=== PATIENT | male | born 1965 | race Caucasian/White ===

== ENCOUNTER 2017-05-04 13:24 | Emergency (ER) | payer OTHER ==
[~2017-05-04] VITALS: Ht 170.2 cm; Wt 100.0 kg
[2017-05-04 13:26] VITALS: BP 146/85; PULSE 65; RESP 15; TEMP 98.1; O2SAT 99
--- NOTE | 2017-05-04 13:32 | PD ---
Physical Exam Time Seen by Provider: 13:29 Narrative 52yo M c/o R testicle pain since 04/11/2017. Thought had [facility]nia [facility] and is concerned of appendicitis or hydrocele. Denies fever, vomiting. +urinary frequency. Says testicle feels swollen, but was told by [facility] its not swollen. Patient seen in triage. VS reviewed. Awaiting bed placement. MDM Supervised Visit with BLAYNE: Madhavi Reyna May 04, 2017 13:32
--- NOTE | 2017-05-04 13:43 | PD ---
HPI . testicle pain, right lower quadrant pain x 1 day Chief Complaint: Complaint Time Seen by Provider: 13:43 Travel History International Travel<30 days: No Contact w/Intl Traveler<30days: No Traveled to known affect area: No History of Present Illness HPI 52-year-old male who was [facility] due to right lower quadrant pain and testicular pain and told that he possibly had a hydrocele versus appendicitis here with complaints of right lower quadrant pain, right sided testicular pain, upper quadrant and left lower pain for 1 day. History significant for carpal tunnel syndrome, osteoarthritis, male hypogonadism, major depressive disorder, cervical radiculopathy, BPH, mentation status of the lower limb on the left, gout, obesity, hyperlipidemia, chronic low back pain, posttraumatic stress disorder, thrombocytopenia and normocytic anemia. Patient tells me that initially had some nausea, however now he is better. He reports abdominal pain as 7/10 primarily located in the right lower quadrant and right testicles. He has not had any vomiting. He does report having constipation for the past few days, however this morning he had a bowel movement for the first time in about 7 days. [facility], [facility] Social History Alcohol Use: No Tobacco Use: No Substance Use: No Allergies-Medications (Allergen,Severity, Reaction): Coded Allergies: Imitrex (Verified Allergy, Unknown, 05/04/17) Review of Systems General / Constitutional: No: Fever Eyes: No: Visual changes HENT: No: Headaches Cardiovascular: No: Chest Pain or Discomfort Respiratory: No: Shortness of Breath Gastrointestinal: Positive: Abdominal Pain, Other (testicular pain ) Genitourinary: Positive: Other (right sided testicular pain ), No: Dysuria Musculoskeletal: No: Pain Skin: No Rash Neurologic: No: Weakness Psychiatric: No: Depression Endocrine: No: Polydipsia Hematologic/Lymphatic: No: Easy Bruising Physical Exam Narrative GENERAL: AAO x 3, no acute distress, Well-nourished, well-developed patient. SKIN: Warm and dry. No visible rashes or bruising. HEAD: Normocephalic and atraumatic. EYES: No scleral icterus. No injection or drainage. EOM intact, PERRLA ENT: No nasal drainage noted. Mucous membranes pink. Airway patent. NECK: Supple, trachea midline. No JVD. CARDIOVASCULAR: Regular rate and rhythm without murmurs, gallops, or rubs. RESPIRATORY: Breath sounds equal bilaterally. No accessory muscle use. No rhonchi or rales. GASTROINTESTINAL: Abdomen soft, tenderness to deep palpation in the left upper quadrant, left lower quadrant and mainly in the right lower quadrant. Positive McBurney's point tenderness. There is also tenderness in the suprapubic area GENITAL: Maria Luz RN present, + right sided inguinal hernia that is reducible EXTREMITIES: No cyanosis or edema. L BKA with prosthesis in place BACK: No obvious deformity. + right sided CVA tenderness. 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 Data Data Last Documented VS Vital Signs Date Time Temp Pulse Resp B/P Pulse Ox O2 Delivery O2 Flow Rate FiO2 05/04/17 13:26 98.1 65 15 146/85 99 Orders Complete Blood Count With Diff (05/04/17 14:09) Comprehensive Metabolic Panel (05/04/17 14:09) Lipase (05/04/17 14:09) Prothrombin Time / Inr (Pt) (05/04/17 14:09) Act Partial Throm Time (Ptt) (05/04/17 14:09) Urinalysis - C+S If Indicated (05/04/17 14:09) Ct Abd/Pel W Iv Contrast(Rout) (05/04/17 14:09) Iv Access Insert/Monitor (05/04/17 14:09) Ecg Monitoring (05/04/17 14:09) Oximetry (05/04/17 14:09) Sodium Chloride 0.9% Flush (Ns Flush) (05/04/17 14:15) Us Testicles W Doppler (05/04/17 14:09) Iohexol 350 Inj (Omnipaque 350 Inj) (05/04/17 15:34) Labs Laboratory Tests Test 05/04/17 14:25 White Blood Count 7.0 TH/MM3 Red Blood Count 4.73 MIL/MM3 Hemoglobin 14.7 GM/DL Hematocrit 42.2 % Mean Corpuscular Volume 89.4 FL Mean Corpuscular Hemoglobin 31.0 PG Mean Corpuscular Hemoglobin 34.7 % Concent Red Cell Distribution Width 13.1 % Platelet Count 192 TH/MM3 Mean Platelet Volume 9.0 FL Neutrophils (%) (Auto) 59.3 % Lymphocytes (%) (Auto) 28.8 % Monocytes (%) (Auto) 8.1 % Eosinophils (%) (Auto) 2.7 % Basophils (%) (Auto) 1.1 % Neutrophils # (Auto) 4.1 TH/MM3 Lymphocytes # (Auto) 2.0 TH/MM3 Monocytes # (Auto) 0.6 TH/MM3 Eosinophils # (Auto) 0.2 TH/MM3 Basophils # (Auto) 0.1 TH/MM3 CBC Comment DIFF FINAL Differential Comment Prothrombin Time 11.2 SEC Prothromb Time International 1.0 RATIO Ratio Activated Partial 28.4 SEC Thromboplast Time Urine Color YELLOW Urine Turbidity CLEAR Urine pH 5.5 Urine Specific [place] 1.016 Urine Protein NEG mg/dL Urine Glucose (UA) NEG mg/dL Urine Ketones NEG mg/dL Urine Occult Blood SMALL Urine Nitrite NEG Urine Bilirubin NEG Urine Urobilinogen LESS THAN 2.0 MG/DL Urine Leukocyte Esterase NEG Urine RBC 2 /hpf Urine WBC LESS THAN 1 /hpf Microscopic Urinalysis Comment CULT NOT INDICATED Sodium Level 137 MEQ/L Potassium Level 3.8 MEQ/L Chloride Level 105 MEQ/L Carbon Dioxide Level 26.1 MEQ/L Anion Gap 6 MEQ/L Blood Urea Nitrogen 14 MG/DL Creatinine 0.82 MG/DL Estimat Glomerular Filtration 98 ML/MIN Rate Random Glucose 98 MG/DL Calcium Level 8.9 MG/DL Total Bilirubin 0.6 MG/DL Aspartate Amino Transf 20 U/L (AST/SGOT) Alanine Aminotransferase 27 U/L (ALT/SGPT) Alkaline Phosphatase 69 U/L Total Protein 7.2 GM/DL Albumin 3.9 GM/DL Lipase 160 U/L [facility] Medical Decision Making Medical Screen Exam Complete: Yes Emergency Medical Condition: Yes Medical Record Reviewed: Yes Differential Diagnosis Right inguinal hernia, epididymitis, appendicitis, colitis, diverticulitis, orchitis Narrative Course 52-year-old male here with complaints of right upper quadrant and right testicular pain. He also has some left upper quadrant and left lower quadrant pain. IV access was obtained. Patient was placed on continuous cardiac and pulse oximetry monitoring. Labs, UA, CT have been ordered. Last Impressions Scrotum Ultrasound 05/04/17 [id number] Signed Impressions: Service Date/Time: Thursday, May 04, 2017 14:36 - CONCLUSION: Trace hydrocele bilaterally with symmetrical flow. Negative for mass or torsion. Alex Dahl MD FACR Laboratory Tests Test 05/04/17 14:25 White Blood Count 7.0 TH/MM3 Red Blood Count 4.73 MIL/MM3 Hemoglobin 14.7 GM/DL Hematocrit 42.2 % Mean Corpuscular Volume 89.4 FL Mean Corpuscular Hemoglobin 31.0 PG Mean Corpuscular Hemoglobin 34.7 % Concent Red Cell Distribution Width 13.1 % Platelet Count 192 TH/MM3 Mean Platelet Volume 9.0 FL Neutrophils (%) (Auto) 59.3 % Lymphocytes (%) (Auto) 28.8 % Monocytes (%) (Auto) 8.1 % Eosinophils (%) (Auto) 2.7 % Basophils (%) (Auto) 1.1 % Neutrophils # (Auto) 4.1 TH/MM3 Lymphocytes # (Auto) 2.0 TH/MM3 Monocytes # (Auto) 0.6 TH/MM3 Eosinophils # (Auto) 0.2 TH/MM3 Basophils # (Auto) 0.1 TH/MM3 CBC Comment DIFF FINAL Differential Comment Prothrombin Time 11.2 SEC Prothromb Time International 1.0 RATIO Ratio Activated Partial 28.4 SEC Thromboplast Time Urine Color YELLOW Urine Turbidity CLEAR Urine pH 5.5 Urine Specific [place] 1.016 Urine Protein NEG mg/dL Urine Glucose (UA) NEG mg/dL Urine Ketones NEG mg/dL Urine Occult Blood SMALL Urine Nitrite NEG Urine Bilirubin NEG Urine Urobilinogen LESS THAN 2.0 MG/DL Urine Leukocyte Esterase NEG Urine RBC 2 /hpf Urine WBC LESS THAN 1 /hpf Microscopic Urinalysis Comment CULT NOT INDICATED Sodium Level 137 MEQ/L Potassium Level 3.8 MEQ/L Chloride Level 105 MEQ/L Carbon Dioxide Level 26.1 MEQ/L Anion Gap 6 MEQ/L Blood Urea Nitrogen 14 MG/DL Creatinine 0.82 MG/DL Estimat Glomerular Filtration 98 ML/MIN Rate Random Glucose 98 MG/DL Calcium Level 8.9 MG/DL Total Bilirubin 0.6 MG/DL Aspartate Amino Transf 20 U/L (AST/SGOT) Alanine Aminotransferase 27 U/L (ALT/SGPT) Alkaline Phosphatase 69 U/L Total Protein 7.2 GM/DL Albumin 3.9 GM/DL Lipase 160 U/L I have discussed all the results with the patient. There is no abn to explain his pain. It could be related to the inguinal hernia I felt on exam. [facility] Patient verbalized understanding of instructions, questions were answered, and thanked me for their care. I advised them if their condition worsens, please return to the nearest emergency room for further care. Diagnosis Primary Impression: Right inguinal hernia Additional Impression: Hydrocele Qualified Code: N43.3 - Hydrocele, unspecified hydrocele type Referrals: [facility] Patient Instructions: General Instructions Additional Instructions: Please return to emergency department if your symptoms return or worsen. Follow up with your primary care provider. Med/Other Pt SpecificInfo: No Change to Meds Disposition: 01 DISCHARGE HOME Condition: Stable Susie Sinha May 04, 2017 13:43
[2017-05-04] MEDS ORDERED: SODIUM CHLORIDE 0.9% FLUSH 10 ML FLUSH IV FLUSH PRN (14:15)
[2017-05-04 14:51] LABS: BLOOD, URINE SMALL (NEG); GLUCOSE,URINE NEG (NEG); KETONE, URINE NEG (NEG); NITRITE,URINE NEG (NEG); PH, URINE 5.5 (5.0-8.5); URINE COLOR YELLOW (YELLW/STRAW)
[2017-05-04 14:52] LABS: COMMENT (UR) CULT NOT INDICATED; CULTURE IF INDICATED CULT NOT INDICATED
[2017-05-04 14:53] LABS: AUTOMATED NEUTROPHIL # 4.1 TH/MM3 (1.8-7.7); BASOPHIL # 0.1 TH/MM3 (0-0.2); BASOPHIL % 1.1 % (0.0-2.0); EOSINOPHIL # 0.2 TH/MM3 (0-0.4); EOSINOPHIL % 2.7 % (0.0-4.0); HEMATOCRIT 42.2 % (39.0-51.0); HEMO FLAGS DIFF FINAL; LYMPH % 28.8 % (9.0-44.0); MEAN CELL VOLUME 89.4 FL (80.0-100.0); MEAN CORPUSCULAR HGB CONC 34.7 % (32.0-36.0); MONO % 8.1 % (0.0-8.0); NEUT % 59.3 % (16.0-70.0); PLATELET COUNT 192 TH/MM3 (150-450); RED BLOOD COUNT 4.73 MIL/MM3 (4.50-5.90); RED CELL DISTRIBUTION WIDTH 13.1 % (11.6-17.2)
[2017-05-04 14:59] LABS: APTT (PATIENT) 28.4 SEC (24.3-30.1); PROTHROMBIN TIME - PATIENT 11.2 SEC (9.8-11.6)
[2017-05-04 15:08] LABS: ALT (GPT) 27 U/L (12-78); ANION GAP 6 MEQ/L (5-15); AST (GOT) 20 U/L (15-37); BICARBONATE 26.1 MEQ/L (21.0-32.0); BLOOD UREA NITROGEN 14 MG/DL (7-18); CHLORIDE 105 MEQ/L (98-107); GLOMERULAR FILTRATION RATE 98 ML/MIN (>89); POTASSIUM 3.8 MEQ/L (3.5-5.1); SODIUM (NA) 137 MEQ/L (136-145)
[2017-05-04 15:10] LABS: ALKALINE PHOSPHATASE 69 U/L (45-117); TOTAL BILIRUBIN ADULT 0.6 MG/DL (0.2-1.0)
[2017-05-04] MEDS ORDERED: IOHEXOL 350 MG/ML 10 ML VIAL (for RAD DIAG) IV ONE (15:34)
--- NOTE | 2017-05-04 15:34 | RADRPT ---
EXAM DATE/TIME: 05/04/2017 14:36 [facility] COMPARISON: No previous studies available for comparison. INDICATIONS : Testicle pain. MEDICAL HISTORY : Epididimitis. SURGICAL HISTORY : Left knee amputee. ENCOUNTER: Initial ACUITY: 1 month PAIN SCORE: 7/10 LOCATION: Bilateral testicles. MEASUREMENTS: RIGHT TESTICLE: 4.8 x 2.3 x 3.4cm LEFT TESTICLE: 5.0 x 2.0 x 3.7cm FINDINGS: RIGHT TESTICLE: Heterogeneous echotexture with small cysts present. Blood flow is symmetric and within normal limits . Trace hydrocele. Epididymis is within normal limits. LEFT TESTICLE: Heterogeneous echotexture with mildly prominent epididymis and trace hydrocele. Symmetrical flow. SCROTUM: Within normal limits. CONCLUSION: Trace hydrocele bilaterally with symmetrical flow. Negative for mass or torsion. Alex Dahl MD FACR on May 04, 2017 at 15:31 Board Certified Radiologist. This report was verified electronically.
--- NOTE | 2017-05-04 16:13 | RADRPT ---
EXAM DATE/TIME: 05/04/2017 15:24 [facility] COMPARISON: No previous studies available for comparison. INDICATIONS : Right lower quadrant pain IV CONTRAST: 100 cc Omnipaque 350 (iohexol) IV ORAL CONTRAST: No oral contrast ingested. RADIATION DOSE: 16.47 CTDIvol (mGy) MEDICAL HISTORY : None SURGICAL HISTORY : None. ENCOUNTER: Initial ACUITY: 2 weeks PAIN SCALE: 7/10 LOCATION: Right Abdomen TECHNIQUE: Volumetric scanning of the abdomen and pelvis was performed. Using automated exposure control and ad justment of the mA and/or kV according to patient size, radiation dose was kept as low as reasonably achievable to obtain optimal diagnostic quality images. DICOM format image data is available electro nically for review and comparison. FINDINGS: LOWER LUNGS: The visualized lower lungs are clear. LIVER: Homogeneous density without lesion. There is no dilation of the biliary tree. No calcified gallston es. SPLEEN: Normal size without lesion. PANCREAS: Within normal limits. KIDNEYS: Normal in size and shape. There is no mass, stone or hydronephrosis. Note is made of a 1.7 cm simple cyst within the cortex of the right kidney. ADRENAL GLANDS: Within normal limits. VASCULAR: There is no aortic aneurysm. BOWEL/MESENTERY: The stomach, small bowel, and colon demonstrate no acute abnormality. There is no free intraperitone al air or fluid. ABDOMINAL WALL: Within normal limits. RETROPERITONEUM: There is no lymphadenopathy. BLADDER: No wall thickening or mass. REPRODUCTIVE: Within normal limits. INGUINAL: There is no lymphadenopathy or hernia. MUSCULOSKELETAL: There degenerative changes in the facet joints and degenerative changes throughout the disc of the lo wer lumbar spine. CONCLUSION: 1. No definite abnormality to explain the patient's right lower quadrant pain is identified. Sebastian Dahl MD on May 04, 2017 at 15:56 Board Certified Radiologist. This report was verified electronically.
== END 2017-05-04 16:40 | disposition home or self-care (01) ==
LOC: NEPD 13:24
DX: K40.90 Unilateral inguinal hernia, without obstruction or gangrene, not specified as recurrent (principal); N43.3 Hydrocele, unspecified
CPT/HCPCS: 74177; 76870; 80053; 81001; 83690; 85025; 85610; 85730; 93975; 99284; Q9967